=== PATIENT | male | born 1975 | race Caucasian/White ===

== ENCOUNTER 2023-08-21 11:34 | Outpatient (CLI) | payer OTHER, SELFPAY | END 2023-08-21 11:35 | disposition home or self-care (01) | LOC: AMB 09-10 19:29 | PROVIDERS: Visit Provider Emergency Medicine | DX: T14.90XA Injury, unspecified, initial encounter (principal); V49.40XA Driver injured in collision with unspecified motor vehicles in traffic accident, initial encounter; Y92.410 Unspecified street and highway as the place of occurrence of the external cause | CPT/HCPCS: A0998 ==